=== PATIENT | female | born 1950 | race Caucasian/White ===

== ENCOUNTER 2019-03-13 16:02 | Emergency (ER) | payer OTHER ==
--- NOTE | 2019-03-13 17:11 | RAD REPORT ---
EXAM DESCRIPTION: RAD - Abdomen Acute Series - 03/13/2019 5:02 pm CLINICAL HISTORY: Abdominal pain FINDINGS: Lungs appear clear of acute infiltrate. Free air is not seen beneath the diaphragm. The bowel gas pattern is unremarkable. Moderate amount of stool is present within the colon Right upper quadrant calcifications probably represent gallstones. .
[2019-03-13 19:14] LABS: Urine Bacteria <20 /HPF (<20); Urine Culture Reflex Order NOT NEEDED; Urine Mucus 1+ /HPF (NONE SEEN)
[2019-03-13 19:15] LABS: Urine Blood 2+ (NEG); Urine Glucose NEGATIVE (NEG); Urine Protein NEGATIVE (NEG); Urine Specific Gravity 1.015 (1.005-1.030)
--- NOTE | 2019-03-13 19:43 | ER ---
Nurse's Notes [facility] [place] Name: Lia Romero Age: 68 yrs Sex: Female : 1950 Arrival Date: 03/13/2019 Time: 16:06 Bed 14 Private MD: Diagnosis: Presentation: 03/13 16:11 Presenting complaint: Patient states: constipation and anal burning sensation while sv trying to have a BM. Transition of care: patient was not received from another setting of care. Onset of symptoms was March 11, 2019. Care prior to arrival: None. 16:11 Method Of Arrival: Ambulatory sv 16:11 Acuity: ZHAO 4 sv 19:04 Risk Assessment: Do you want to hurt yourself or someone else? Patient reports no ph desire to harm self or others. Initial Sepsis Screen: Does the patient meet any 2 criteria? No. Patient's initial sepsis screen is negative. Does the patient have a suspected source of infection? No. Patient's initial sepsis screen is negative. Triage Assessment: 19:05 General: Appears. ph Historical: - Allergies: 16:14 No Known Allergies; sv - PMHx: 16:14 Cirrhosis; Hepatitis C; Splenomegaly; Low RBC, HGB, platelets; liver cancer; esophageal sv varices; - PSHx: 16:14 Hernia repair; sv - Immunization history:: Adult Immunizations unknown. - Social history:: Smoking status: Patient/guardian denies using tobacco. - Ebola Screening: : No symptoms or risks identified at this time. Screenin:04 Abuse screen: Denies threats or abuse. Denies injuries from another. Nutritional ph screening: No deficits noted. Tuberculosis screening: No symptoms or risk factors identified. Fall Risk None identified. Assessment: 16:30 General: Appears in no apparent distress. comfortable. Pain: Complains of pain in anus. ph Neuro: Neuro: Level of Consciousness is awake, alert, obeys commands, Oriented to person, place, time, situation. Cardiovascular: Capillary refill < 3 seconds in bilateral fingers Patient's skin is warm and dry. Respiratory: Airway is patent Respiratory effort is even, unlabored, Respiratory pattern is regular, symmetrical. GI: Abdomen is flat, non-distended, Bowel sounds present X 4 quads. Abd is soft X 4 quads Reports constipation, last BM 2 days ago Patient currently denies bloody stool, nausea, vomiting. : No signs and/or symptoms were reported regarding the genitourinary system. Denies burning with urination, inability to void. Derm: Skin is intact, Skin is pink, warm \T\ dry. 17:30 Reassessment: Patient appears in no apparent distress at this time. Patient and/or ph family updated on plan of care and expected duration. Pain level reassessed. Patient is alert, oriented x 3, equal unlabored respirations, skin warm/dry/pink. 18:30 Reassessment: Patient appears in no apparent distress at this time. Patient and/or ph family updated on plan of care and expected duration. Pain level reassessed. Patient is alert, oriented x 3, equal unlabored respirations, skin warm/dry/pink. Urine sample obtained. 19:10 Reassessment: Went into pt room for bedside report, room found to be empty, pt also not ph in restroom. 19:48 Reassessment: Pt not found in room, restroom, or lobby, will chart out as eloped. ph Vital Signs: 16:14 BP 90 / 52; Pulse 77; Resp 18; Temp 98.5; Pulse Ox 100% ; Weight 72.57 kg; Height 5 ft. sv 4 in. (162.56 cm); Pain 6/10; 17:30 BP 104 / 56; Pulse 71; Resp 18; Pulse Ox 98% on R/A; ph 16:14 Body Mass Index 27.46 (72.57 kg, 162.56 cm) sv ED Course: 16:06 Patient arrived in ED. mr 16:12 Triage completed. sv 16:14 Arm band placed on. sv 16:22 Scotty Sena PA is PHCP. jr8 16:22 Cory Krueger MD is Attending Physician. jr8 17:00 X-ray completed. Patient tolerated procedure well. Patient moved back from radiology. bb2 17:02 Abdomen Acute Series XRAY In Process Unspecified. EDMS 17:17 Rin Noonan, BHARGAVI is Primary Nurse. aj1 18:50 Urine Dipstick--Ancillary (enter results) Sent. mh5 18:50 Urine Microscopic Only Sent. mh5 18:50 UA Sent. mh5 19:04 Patient has correct armband on for positive identification. Bed in low position. Call ph light in reach. Side rails up X 1. Pulse ox on. NIBP on. Warm blanket given. 19:23 No provider procedures requiring assistance completed. Patient did not have IV access ph during this emergency room visit. Administered Medications: No medications were administered Outcome: 19:49 Eloped from patient exam room, Time discovered patient gone: March 13, 2019 at 19:10 ph 19:49 Condition: stable 19:49 Patient left the ED. ph Signatures: Dispatcher [employer] EDRin Campos RN RN aj1 Makayla Sifuentes RN RN Loretta Vargas mr Scotty Sena PA PA jr8 Lakisha Law RN RN Ashwini Yoo [facility] Deisy Scruggs 2 Corrections: (The following items were deleted from the chart) 16:14 16:14 BP 90 / 52; Pulse 77bpm; Resp 18bpm; Pulse Ox 100%; Temp 98.5F; 72.57 kg; Height sv 5 ft. 4 in.; BMI: 27.4; Pain 0/10; sv
--- NOTE | 2019-03-13 19:43 | EDPHYS ---
Physician Documentation [facility] Name: Lia Romero Age: 68 yrs Sex: Female : 1950 Arrival Date: 03/13/2019 Time: 16:06 Bed 14 Private MD: ED Physician Cory Krueger HPI: 03/13 16:44 This 68 yrs old Female presents to ER via Ambulatory with complaints of jr8 Constipation, Rectal Pain. 16:44 Onset: The symptoms/episode began/occurred gradually, 1 day(s) ago. Associated signs jr8 and symptoms: Pertinent positives: abdominal pain, constipation, nausea, Pertinent negatives: diarrhea, vomiting. Modifying factors: The patient symptoms are alleviated by nothing, the patient symptoms are aggravated by nothing. The patient has experienced similar episodes in the past, today's symptoms are similar, to previous constipation issues. The patient has not recently seen a physician. Patient presents to the ER for the complaint of constipation and "rectal burning." Patient states she deals with chronic constipation and takes Lactulose on a regular basis, but she has not had a BM in 2 days. She reports her normal pattern is a BM every 2-3 days. Today she became concerned because she had some rectal burning while using the restroom, and in the past she once had a hernia that needed to be repaired when she had these symptoms. Patient does endorse nausea. Denies vomiting, diarrhea, and fever. . Historical: - Allergies: 16:14 No Known Allergies; sv - PMHx: 16:14 Cirrhosis; Hepatitis C; Splenomegaly; Low RBC, HGB, platelets; liver cancer; esophageal sv varices; - PSHx: 16:14 Hernia repair; sv - Immunization history:: Adult Immunizations unknown. - Social history:: Smoking status: Patient/guardian denies using tobacco. - Ebola Screening: : No symptoms or risks identified at this time. ROS: 16:44 Constitutional: Negative for fever, chills, and weight loss, Cardiovascular: Negative jr8 for chest pain, palpitations, and edema, Respiratory: Negative for shortness of breath, cough, wheezing, and pleuritic chest pain, Skin: Negative for injury, rash, and discoloration, Neuro: Negative for headache, weakness, numbness, tingling, and seizure. 16:44 : Negative for injury, bleeding, discharge, and swelling. 16:44 Abdomen/GI: Positive for abdominal pain, nausea, rectal pain, Negative for vomiting, diarrhea, abdominal cramps, abdominal distension, hematemesis, black/tarry stool, rectal bleeding, bowel incontinence. 16:44 : Exam: 16:48 Constitutional: This is a well developed, well nourished patient who is awake, alert, jr8 and in no acute distress. Cardiovascular: Regular rate and rhythm with a normal S1 and S2. No gallops, murmurs, or rubs. Normal PMI, no JVD. No pulse deficits. Respiratory: Lungs have equal breath sounds bilaterally, clear to auscultation and percussion. No rales, rhonchi or wheezes noted. No increased work of breathing, no retractions or nasal flaring. 16:48 Skin: Warm, dry with normal turgor. Normal color with no rashes, no lesions, and no evidence of cellulitis. 16:48 Abdomen/GI: Inspection: distension, that is mild, Bowel sounds: normal, in all quadrants, Palpation: soft, in all quadrants, mild abdominal tenderness, in the epigastric area, right upper quadrant and left upper quadrant, organomegaly is appreciated, hepatomegaly, splenomegaly, Rectal exam: rectal tone normal, Stool: morales, guaiac negative, soft, hemorrhoid(s), external, without bleeding, without inflammation, without thrombosis, without pain, fecal impaction, is not appreciated, the exam is chaperoned by the nurse. 16:48 Neuro: Orientation: to person, place \\T\\ time. Mentation: slow to respond, Cranial nerves: grossly normal, Motor: is normal. Vital Signs: 16:14 BP 90 / 52; Pulse 77; Resp 18; Temp 98.5; Pulse Ox 100% ; Weight 72.57 kg; Height 5 ft. sv 4 in. (162.56 cm); Pain 6/10; 17:30 BP 104 / 56; Pulse 71; Resp 18; Pulse Ox 98% on R/A; ph 16:14 Body Mass Index 27.46 (72.57 kg, 162.56 cm) sv MDM: 16:22 Patient medically screened. jr8 19:40 Data reviewed: vital signs, nurses notes, lab test result(s), radiologic studies, plain jr8 films. Data interpreted: Pulse oximetry: on room air is 98 %. Interpretation: normal. ED course: Patient left without getting diagnosis or results of labs or images. Unknown reason. Waited to see if they would come back but have not been able to find them. 03/13 18:45 Order name: Urine Microscopic Only; Complete Time: 19:27 jr8 03/13 16:43 Order name: Abdomen Acute Series XRAY; Complete Time: 17:28 jr8 03/13 18:49 Order name: Urine Dipstick--Ancillary (enter results); Complete Time: 19:27 bd Administered Medications: No medications were administered Disposition: 03/13/19 19:42 Patient left the facility after being seen by provider. - Patient left due to unknown. - Condition is Stable. Signatures: Dispatcher [employer] Makayla Patel, RN RN Scotty Perdomo PA PA jr8 Lakisha Law RN RN ph Corrections: (The following items were deleted from the chart) 19:49 19:42 03/13/2019 19:42 Patient left the facility after being seen by provider. Reason ph stated they are leaving due to unknown. Condition is Stable. jr8
== END 2019-03-13 19:49 | disposition left against medical advice (07) ==
LOC: ER 16:02
DX: K59.00 Constipation, unspecified (principal); Z53.21 Procedure and treatment not carried out due to patient leaving prior to being seen by health care provider
CPT/HCPCS: 74022; 81003; 81015; 99283